=== PATIENT | female | born 1965 | race Caucasian/White ===

== ENCOUNTER 2018-01-24 14:54 | Emergency (ER) | payer OTHER ==
[2018-01-24] MEDS: ALPRAZOLAM 0.25 MG TAB PO (17:35)
[2018-01-24] MEDS: KETOROLAC 15 MG INJ IV (17:35)
== END 2018-01-24 18:06 | disposition home or self-care (01) ==
LOC: E/R 14:54
DX: R20.2 Paresthesia of skin (principal); I10 Essential (primary) hypertension; R40.2142 Coma scale, eyes open, spontaneous, at arrival to emergency department; R40.2252 Coma scale, best verbal response, oriented, at arrival to emergency department; R40.2362 Coma scale, best motor response, obeys commands, at arrival to emergency department; Z79.82 Long term (current) use of aspirin
CPT/HCPCS: 36415; 93005; 96374; 99284-25

== ENCOUNTER 2018-02-17 10:31 | Emergency (ER) | payer OTHER ==
[2018-02-17] MEDS: LISINOPRIL 10 MG TAB PO (12:06)
[2018-02-17] MEDS: HYDROCHLOROTHIAZIDE 25 MG TAB PO (12:06)
[2018-02-17 12:22] LABS: ADD UMIC YES; UR ASCORBIC ACID NEGATIVE (NEGATIVE); UR BILIRUBIN (Dip) NEGATIVE (NEGATIVE); UR BLOOD (Dip) NEGATIVE (NEGATIVE); UR CLARITY CLEAR (CLEAR); UR COLOR COLORLESS (YELLOW); UR GLUCOSE (Dip) NEGATIVE (NEGATIVE); UR KETONES (Dip) NEGATIVE (NEGATIVE); UR LEUKOCYTE ESTERASE (Dip) TRACE Leu/ul (NEGATIVE); UR NITRITE (Dip) NEGATIVE (NEGATIVE); UR RBC 0 /HPF (0-5); UR SPECIFIC GRAVITY (Dip) 1.002 (1.003-1.030); UR TOTAL PROTEIN (Dip) NEGATIVE (NEGATIVE); UR UROBILINOGEN (Dip) NEGATIVE (NEGATIVE); UR WBC 1 /HPF (0-5)
[2018-02-17] MEDS: ACETAMINOPHEN 325 MG TAB PO (12:35)
== END 2018-02-17 13:22 | disposition home or self-care (01) ==
LOC: FTE 10:31
DX: R51 Headache (principal); I10 Essential (primary) hypertension; Z79.82 Long term (current) use of aspirin
CPT/HCPCS: 70450; 70486; 81001; 93005; 99285-25

== ENCOUNTER 2018-04-15 20:22 | Emergency (ER) | payer OTHER ==
[2018-04-15] MEDS: DIAZEPAM 5 MG TAB PO (21:30)
== END 2018-04-15 23:57 | disposition home or self-care (01) ==
LOC: FTE 20:22
DX: F43.0 Acute stress reaction (principal); I10 Essential (primary) hypertension; Z79.82 Long term (current) use of aspirin; Z86.73 Personal history of transient ischemic attack (TIA), and cerebral infarction without residual deficits
CPT/HCPCS: 70360; 71046; 93005; 99284-25

== ENCOUNTER 2018-05-09 04:25 | Emergency (ER) | payer OTHER ==
[2018-05-09] MEDS: DIPHENHYDRAMINE 50 MG INJ IM (04:55)
== END 2018-05-09 05:09 | disposition home or self-care (01) ==
LOC: FTE 04:25
DX: F41.9 Anxiety disorder, unspecified (principal); I10 Essential (primary) hypertension; Z79.82 Long term (current) use of aspirin; Z86.73 Personal history of transient ischemic attack (TIA), and cerebral infarction without residual deficits
CPT/HCPCS: 96372; 99284-25; J1200

== ENCOUNTER 2018-07-16 02:29 | Emergency (ER) | payer OTHER ==
[2018-07-16] MEDS: HYDROCODONE/APAP (5/325) TAB PO (02:59)
== END 2018-07-16 03:32 | disposition home or self-care (01) ==
LOC: FTE 02:29
DX: K08.89 Other specified disorders of teeth and supporting structures (principal); I10 Essential (primary) hypertension; Z86.73 Personal history of transient ischemic attack (TIA), and cerebral infarction without residual deficits
CPT/HCPCS: 99283; Z7502

== ENCOUNTER 2018-11-01 11:58 | Emergency (ER) | payer OTHER ==
[2018-11-01 14:18] LABS: ADD MAN DIFF? NO
[2018-11-01 14:25] LABS: BASOPHIL # 0.1 10^3/ul (0.0-0.1); BASOPHILS % 0.6 % (0.0-2.0); EOSINOPHILS % 0.1 % (0.0-7.0); HEMATOCRIT 43.2 % (37.0-47.0); HEMOGLOBIN 14.5 g/dl (12.0-16.0); LYMPHOCYTES % 12.6 % (15.0-51.0); MEAN CORPUSCULAR HGB CONC 33.6 g/dl (32.0-37.0); MEAN CORPUSCULAR VOLUME 95.4 fl (82.0-101.0); MEAN PLATELET VOLUME 11.5 fl (7.4-10.4); MONOCYTE # 0.4 10^3/ul (0.3-0.9); MONOCYTES % 5.1 % (0.0-11.0); NEUTROPHIL # 6.7 10^3/ul (1.6-7.5); NEUTROPHILS % 81.2 % (39.0-77.0); PLATELET COUNT 175 10^3/UL (140-415); RED BLOOD COUNT 4.53 10^6/ul (4.20-5.40); RED CELL DISTRIBUTION WIDTH 12.3 % (11.5-14.5)
[2018-11-01 14:25] LABS: WHITE BLOOD COUNT 8.2 10^3/ul (4.8-10.8)
[2018-11-01 14:31] LABS: ADD UMIC NO; UR ASCORBIC ACID NEGATIVE (NEGATIVE); UR BILIRUBIN (Dip) NEGATIVE (NEGATIVE); UR BLOOD (Dip) NEGATIVE (NEGATIVE); UR CLARITY CLEAR (CLEAR); UR COLOR YELLOW (YELLOW); UR GLUCOSE (Dip) NEGATIVE (NEGATIVE); UR KETONES (Dip) NEGATIVE (NEGATIVE); UR LEUKOCYTE ESTERASE (Dip) NEGATIVE Leu/ul (NEGATIVE); UR NITRITE (Dip) NEGATIVE (NEGATIVE); UR SPECIFIC GRAVITY (Dip) 1.002 (1.003-1.030); UR TOTAL PROTEIN (Dip) NEGATIVE (NEGATIVE); UR UROBILINOGEN (Dip) NEGATIVE (NEGATIVE)
[2018-11-01] MEDS: ALPRAZOLAM 1 MG TAB PO (14:33)
[2018-11-01] MEDS: SOD CHLORIDE 0.9% 1,000 ML IV (14:33)
[2018-11-01 14:42] LABS: ALANINE AMINOTRANSFERASE 44 IU/L (13-69); ALBUMIN 4.9 g/dl (3.3-4.9); ALBUMIN/GLOBULIN RATIO 1.48; ALKALINE PHOSPHATASE 91 IU/L (42-121); ANION GAP 14 (5-13); ASPARTATE AMINO TRANSFERASE 46 IU/L (15-46); BILIRUBIN,INDIRECT 0.8 mg/dl (0-1.1); BILIRUBIN,TOTAL 0.8 mg/dl (0.2-1.3); BLOOD UREA NITROGEN 14 mg/dl (7-20); CALCIUM 10.4 mg/dl (8.4-10.2); CARBON DIOXIDE 29 mmol/L (21-31); CHLORIDE 104 mmol/L (97-110); CREATININE 0.68 mg/dl (0.44-1.00); Estimated GFR > 60 mL/min (>60); GLUCOSE 108 mg/dl (70-220); LIPASE 98 U/L (23-300); POTASSIUM 4.7 mmol/L (3.5-5.1); SODIUM 147 mmol/L (135-144); TOTAL PROTEIN 8.2 g/dl (6.1-8.1)
[2018-11-01 14:53] LABS: TROPONIN-I < 0.012 ng/ml (0.000-0.120)
== END 2018-11-01 16:46 | disposition home or self-care (01) ==
LOC: E/R 11:58
DX: I10 Essential (primary) hypertension (principal); Z79.82 Long term (current) use of aspirin; Z86.73 Personal history of transient ischemic attack (TIA), and cerebral infarction without residual deficits
CPT/HCPCS: 36415; 80053; 81003; 83690; 84484; 85025; 93005; 99284-25

== ENCOUNTER 2018-11-27 13:45 | Emergency (ER) | payer OTHER ==
[2018-11-27] MEDS: ACETAMINOPHEN 500 MG TAB PO (14:59)
== END 2018-11-27 17:49 | disposition home or self-care (01) ==
LOC: FTE 13:45
DX: S09.90XA Unspecified injury of head, initial encounter (principal); I10 Essential (primary) hypertension; R51 Headache; W18.2XXA Fall in (into) shower or empty bathtub, initial encounter; Y92.9 Unspecified place or not applicable; Z79.82 Long term (current) use of aspirin; Z86.73 Personal history of transient ischemic attack (TIA), and cerebral infarction without residual deficits
CPT/HCPCS: 70450; 70486; 81025; 99284-25

== ENCOUNTER 2019-03-29 17:30 | Emergency (ER) | payer OTHER | END 2019-03-29 18:12 | disposition home or self-care (01) | LOC: E/R 18:12 | DX: M79.2 Neuralgia and neuritis, unspecified (principal); I10 Essential (primary) hypertension; Z79.82 Long term (current) use of aspirin; Z86.73 Personal history of transient ischemic attack (TIA), and cerebral infarction without residual deficits | CPT/HCPCS: 99283; Z7502 ==